=== PATIENT | male | born 1995 | race Caucasian/White ===

== ENCOUNTER 2016-04-22 12:58 | Inpatient (IN) | payer BC, OTHER ==
[~2016-04-22] VITALS: Ht 185.4 cm; Wt 90.0 kg
[2016-04-22] VITALS (9 sets, daily range): BP systolic 134–148; BP diastolic 62–95; PULSE 72–95; TEMP 36.5–37; O2SAT 95–97; Ht 185.4 cm; Wt 90.0 kg
[~2016-04-22 12:58] MED LIST: HYOS0.1255 PO
[2016-04-22] MEDS ORDERED: ALBUT/IPRATROP 3MG/0.5MG NEB 3 ML VIAL ONE (13:09)
[2016-04-22] MEDS ORDERED: EpINEphrine INJ 1MG/ML AMP 1 MG/ML AMP ONE (13:10)
[2016-04-22] MEDS ORDERED: METHYLPREDNISOLONE 125 MG VIAL ONE (13:10)
[2016-04-22] MEDS ORDERED: FAMOTIDINE 20MG/102 ML D5W IV STA (13:13)
[2016-04-22] MEDS ORDERED: DiphenhydrAMINE HCL 50 MG/ML VIAL IV STA (13:13)
[2016-04-22] MEDS ORDERED: DiphenhydrAMINE HCL 50 MG/ML VIAL ONE (13:14)
--- NOTE | 2016-04-22 13:23 | EMERGENCY ROOM VISIT NOTE ---
History Report prepared by Nasim: Todd Robles Under the Supervision of: Dr. Arthur Jewell M.D. First contact with patient: 13:10 Chief Complaint: ALLERGIC REACTION Stated Complaint: Allergic Reaction/Amoxicillin Nursing Triage Summary: Pt started on Amoxillin BID on Sunday by [facility]. Stated "they said my uvula was swollen." Possible strep throat. Pt stated he has had difficulty breathing since yesterday. Pt noticed redness and swelling to face and hour ago. Went to [facility] and given .6 epi X2, 50mg benadryl and neb tx. On arrival to ED pt 91% room air. Unknown of what he may have been exposed to this am. 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 He notes he was started on Amoxicillin on 5 days ago by [facility] for a swollen uvula. He last took the Amoxicillin about 2 hours ago. He states he has taken Amoxicillin before. He was on his way back to [facility] today when his allergic symptoms began today. He notes coughing, having shortness of breath, and had "blood rushing to his head". He was given 2 doses of epinephrine IM and 50 mg of Benadryl IV by [facility]. He does not have medication at home for allergic reactions. The patient denies having any known allergies. He reports eating cinnamon raisin toast, applesauce, and water this morning. 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 A total of 10 systems reviewed and were otherwise negative. Past Medical & Surgical Medical Problems: (1) History of abdominal pain (2) Marijuana smoker (3) URI, acute Social History Problems: (1) Social alcohol use Family History No pertinent family history stated. Social History Smoking Status: Never Smoker Occupation Status: [employer] student Current/Historical Medications Scheduled Amoxicillin (Amoxil), 1 CAP PO BID Ibuprofen Tab (Advil), 400-600 MG PO Q6H Nystatin (Nystatin Suspension), 1 DOSE PO BID Probiotic Product (Probiotic), 1 CAP PO DAILY Miscellaneous Medications Clotrimazole (Mycelex), 10 MG MT Allergies Coded Allergies: No Known Allergies (Unverified , 04/22/16) Physical Exam Vital Signs Date Time Temp Pulse Resp B/P Pulse Ox O2 Delivery O2 Flow Rate FiO2 04/22/16 15:03 84 14 97 04/22/16 14:58 89 23 152/93 98 04/22/16 14:43 97 22 132/78 97 04/22/16 14:28 95 15 138/78 97 04/22/16 14:13 93 19 134/78 99 04/22/16 14:01 74 156/101 99 04/22/16 13:58 100 17 135/83 98 04/22/16 13:43 110 23 143/106 92 04/22/16 13:38 149/89 04/22/16 13:29 105 04/22/16 13:28 106 17 96 04/22/16 13:27 97 Nasal Cannula 2.0 04/22/16 13:13 96 17 97 04/22/16 13:03 91 Room Air 04/22/16 13:03 36.9 114 20 152/87 97 Room Air 04/22/16 13:01 152/87 Physical Exam GENERAL: Patient is in no acute distress. HEENT: No acute trauma, normocephalic atraumatic, mucous membranes moist, no nasal congestion, no scleral icterus. Slight edema of the lips. Mild uvular edema. No pharyngitis. NECK: No stridor, no adenopathy, no meningismus, trachea is midline. Hoarse sounding voice. LUNGS: Clear to auscultation bilaterally, no wheeze, no rhonchi, breath sounds equal. HEART: Mildly tachycardic. No murmurs. Rhythm is regular. ABDOMEN: Soft, nontender, bowel sounds positive, no hernias, no peritonitis. EXTREMITIES: No cyanosis or edema, full range of motion of all the joints without pain or difficulty, no signs for acute trauma. NEUROLOGIC: Oriented x 3, no acute motor or sensory deficits, no focal weakness. SKIN: Diffuse erythema with urticarial lesion which tyree. No petechiae. No cellulitis. Medical Decision & Procedures Laboratory Results 04/22/16 13:30 Red Blood Count 5.69, Mean Corpuscular Volume 88.9, Mean Corpuscular Hemoglobin 31.3, Mean Corpuscular Hemoglobin Concent 35.2, Mean Platelet Volume 10.3, Neutrophils (%) (Auto) 64.0, Lymphocytes (%) (Auto) 24.8, Monocytes (%) (Auto) 9.3, Eosinophils (%) (Auto) 1.5, Basophils (%) (Auto) 0.2, Neutrophils # (Auto) 3.88, Lymphocytes # (Auto) 1.50, Monocytes # (Auto) 0.56, Eosinophils # (Auto) 0.09, Basophils # (Auto) 0.01 04/22/16 13:30 Test 04/22/16 13:30 White Blood Count 6.05 K/uL (4.8-10.8) Red Blood Count 5.69 M/uL (4.7-6.1) Hemoglobin 17.8 g/dL (14.0-18.0) Hematocrit 50.6 % (42-52) Mean Corpuscular Volume 88.9 fL (80-100) Mean Corpuscular Hemoglobin 31.3 pg (25-34) Mean Corpuscular Hemoglobin Concent 35.2 g/dl (32-36) Platelet Count 206 K/uL (130-400) Mean Platelet Volume 10.3 fL (7.4-10.4) Neutrophils (%) (Auto) 64.0 % Lymphocytes (%) (Auto) 24.8 % Monocytes (%) (Auto) 9.3 % Eosinophils (%) (Auto) 1.5 % Basophils (%) (Auto) 0.2 % Neutrophils # (Auto) 3.88 K/uL (1.4-6.5) Lymphocytes # (Auto) 1.50 K/uL (1.2-3.4) Monocytes # (Auto) 0.56 K/uL (0.11-0.59) Eosinophils # (Auto) 0.09 K/uL (0-0.5) Basophils # (Auto) 0.01 K/uL (0-0.2) RDW Standard Deviation 40.8 fL (36.4-46.3) RDW Coefficient of Variation 12.5 % (11.5-14.5) Immature Granulocyte % (Auto) 0.2 % Immature Granulocyte # (Auto) 0.01 K/uL (0.00-0.02) Anion Gap 11.0 mmol/L (3-11) Est Creatinine Clear Calc Drug Dose 110.0 ml/min Estimated GFR () 99.6 Estimated GFR (Non- 85.9 BUN/Creatinine Ratio 8.7 (10-20) Calcium Level 8.7 mg/dl (8.5-10.1) Magnesium Level 2.0 mg/dl (1.8-2.4) Total Bilirubin 1.0 mg/dl (0.2-1) Aspartate Amino Transf (AST/SGOT) 17 U/L (15-37) Alanine Aminotransferase (ALT/SGPT) 20 U/L (12-78) Alkaline Phosphatase 53 U/L (45-117) Total Protein 8.0 gm/dl (6.4-8.2) Albumin 4.2 gm/dl (3.4-5.0) Globulin 3.8 gm/dl (2.5-4.0) Albumin/Globulin Ratio 1.1 (0.9-2) Monoscreen NEG (NEG) Laboratory results reviewed by me. Medications Administered Medications (Trade) Dose Ordered Sig/Remy Route Start Time Stop Time Status Last Admin Dose Admin Albuterol/ Ipratropium (Duoneb) 3 ml STK-MED ONCE .ROUTE 04/22/16 13:09 04/22/16 13:11 DC 04/22/16 13:09 3 ML Epinephrine HCl (EpINEphrine INJ 1MG/ML AMP/VIAL) 1 mg STK-MED ONCE .ROUTE 04/22/16 13:10 04/22/16 13:11 DC 04/22/16 13:10 0.3 MG Methylprednisolone Sodium Succinate (Solu-Medrol IV) 125 mg STK-MED ONCE .ROUTE 04/22/16 13:10 04/22/16 13:11 DC 04/22/16 13:10 125 MG Diphenhydramine HCl (Benadryl Inj) 50 mg STK-MED ONCE .ROUTE 04/22/16 13:14 04/22/16 13:15 DC 04/22/16 13:14 50 MG Famotidine 20 mg 20 mg ONE STAT IV 04/22/16 13:13 04/22/16 13:17 DC 04/22/16 13:13 20 MG Epinephrine HCl/ Dextrose (Adrenalin Inj/ D5 250ml) 254 ml @ 0 mls/hr Q0M PRN IV 2/4/17 13:30 04/22/16 16:12 DC 04/22/16 13:38 6.75 MLS/HR ECG Indication: other (allergic reaction) Rate (beats per minute): 102 Rhythm: sinus tachycardia Findings: no acute ischemic change, no ectopy ED Course 1308: The patient was evaluated in room C5. A complete history and physical exam was performed. 1313: Ordered Benadryl Inj 50 mg IV, and Famotidine 20 mg IV. 1330: Ordered Epinephrine HCl 4 mg/Dextrose 254 ml @ 0 mls/hr Protocol IV. 1435: I reassessed the patient and he is feeling better with no rash. 1455: Discussed the patient's case with Dr. Mclean. The patient will be evaluated for further management. 1500: Discussed the patient's case with Dr. Modi. The patient will be evaluated for further management. 1502: Upon reexamination the patient is hemodynamically stable. I discussed results and treatment plan with the patient. He verbalizes agreement and understanding. The patient will be evaluated for further management. 1505: I spoke with the patient's mother to update her about the case. Medical Decision Differentials include food allergy, medication allergy, environmental allergy, viral illness, and anaphylaxis. There is no leukocytosis or concerning anemia. No significant electrolyte abnormality, kidney failure or hepatitis. Scurry testing is negative. Patient presents with a severe allergic reaction. He had already received 2 doses of IM epinephrine and a dose of IV Benadryl. He had received a DuoNeb. He was still having some difficulty breathing, he was still flushed and there was still lip edema present. The patient was aggressively managed. He received IV Benadryl, IV Pepcid, IV Solu-Medrol. He received a DuoNeb. He was given a dose of IM epinephrine and then was placed on an IV epinephrine drip. With this regimen, the patient is markedly improved. His symptoms have improved , the edema to his uvula is better, his lip edema is better, his flushing and rash are improved. I did speak to the patient and case management. I spoke to his parents by telephone. I do think admission/observation is warranted. I spoke to the on- call teacher adult education as well as to the on-call hospitalist. The cause for the severe reaction is unclear although with his amoxicillin use, this is a likely culprit. Consults Time Called: 1450 Consulting Physician: ARLETTE Mullins Returned Call: 1455 Discussed the patient's case with Dr. Mclean. The patient will be evaluated for further management. Additional Consults: Time Called: 1455 Consulted Physician: ARLETTE Gant Returned Call: 1500 Additional Comments: Discussed the patient's case with Dr. Modi. The patient will be evaluated for further management. Impression Primary Impression: Anaphylaxis Critical Care I have personally spent greater than 30 minutes of critical care time in the direct management of this patient. This includes bedside care, interpretation of diagnostic studies and testing, discussion with consultants, the patient, and family members, and other required patient management activities. This 30 minutes is in excess of all separately billable procedures. Scribe Attestation The scribe's documentation has been prepared under my direction and personally reviewed by me in its entirety. I confirm that the note above accurately reflects all work, treatment, procedures, and medical decision making performed by me. Departure Information Dispostion Being Evaluated By Hospitalist [facility] (PCP) Patient Instructions My [facility]
[2016-04-22] MEDS: EPINEPHRINE HCL 4 MG in DEXTROSE 5% 250ML IV PRN ×2 (13:36→13:38)
[2016-04-22 13:44] LABS: BASO % 0.2 %; BASO ABS # 0.01 K/uL (0-0.2); COMPLETE YES; EOS % 1.5 %; HEMATOCRIT 50.6 % (42-52); IG% 0.2 %; LYMPH % 24.8 %; MEAN CELL VOLUME 88.9 fL (80-100); MEAN CORPUSCULAR HEMOGLOBIN 31.3 pg (25-34); MEAN CORPUSCULAR HGB CONC 35.2 g/dl (32-36); MEAN PLATELET VOLUME 10.3 fL (7.4-10.4); MONO % 9.3 %; PLATELET COUNT 206 K/uL (130-400); RED BLOOD COUNT 5.69 M/uL (4.7-6.1); WHITE BLOOD COUNT 6.05 K/uL (4.8-10.8)
[2016-04-22 14:05] LABS: BUN/CREATININE RATIO 8.7 (10-20); CALCIUM 8.7 mg/dl (8.5-10.1); CREATININE 1.2 mg/dl (0.60-1.40); POTASSIUM 3.6 mmol/L (3.5-5.1)
[2016-04-22 14:08] LABS: ALB/GLOB RATIO 1.1 (0.9-2)
[2016-04-22] MEDS ORDERED: MISCCAP80 PO (14:34)
[2016-04-22] MEDS ORDERED: NYSS/ PO (14:34)
[2016-04-22] MEDS ORDERED: IBUP-103 PO (14:34)
[2016-04-22] MEDS ORDERED: AMOX250C3 PO (14:34)
[2016-04-22] MEDS ORDERED: CLOT10TR2 MT (14:34)
[2016-04-22] MEDS ORDERED: DiphenhydrAMINE HCL 50 MG/ML VIAL IV PRN (15:15)
[2016-04-22] MEDS ORDERED: ZOLPIDEM TARTRATE 5 MG TAB PO PRN (15:15)
[2016-04-22] MEDS ORDERED: ACETAMINOPHEN 325 MG TAB PO PRN (15:15)
[2016-04-22] MEDS ORDERED: PROMETHAZINE HCL INJ 12.5 MG in SODIUM CHLORIDE 0.9% 50ML 50 ML IV PRN (15:15)
[2016-04-22] MEDS ORDERED: ONDANSETRON INJ 2 MG/ML 2 ML VIAL IV PRN (15:15)
[2016-04-22] MEDS ORDERED: LORAZEPAM 2 MG/ML 1 ML VIAL IV PRN ×2 (15:15)
[2016-04-22] MEDS ORDERED: LORAZEPAM INJ 0.5 MG in SYRINGE 0.75 ML IV PRN (15:30)
[2016-04-22] MEDS ORDERED: LORAZEPAM INJ 1 MG in SYRINGE 0.5 ML IV PRN (15:30)
[2016-04-22] MEDS ORDERED: EpINEphrine HCL INJ 4 MG in DEXTROSE 5% 250ML 250 ML IV PRN (16:15)
--- NOTE | 2016-04-22 16:16 | Procedure Note ---
Procedure Note Procedure Date Apr 22, 2016. Central Line Procedure time out: side/site verified, patient ID confirmed, sterile procedure used Consent obtained: written Time of procedure: 15:30 Performed by: attending Indications: central drug admin. Anesthesia: lidocaine 1% without epi (2 ml) Central line lumen: single Central line location: internal jugular (R) Additional details: ultrasound guidance, Selinger technique used, other (line secured with commercial securement device) CXR: appropriate position, no pneumothorax Patient tolerated procedure: well Post-procedure vital signs: reviewed and stable
--- NOTE | 2016-04-22 16:26 | DIAGNOSTIC IMAGING REPORT ---
CHEST ONE VIEW PORTABLE CLINICAL HISTORY: c 5 cough. Allergy. COMPARISON STUDY: 12/13/2015 FINDINGS: The bones soft tissues and hemidiaphragms are normal. The cardiomediastinal silhouette is normal. The lungs are clear. The pulmonary vasculature is normal. IMPRESSION: Negative chest. Electronically signed by: Saman Edwards M.D. 04/22/2016 4:24 PM Dictated Date/Time: 04/22/2016 4:24 PM
--- NOTE | 2016-04-22 16:31 | Critical Care Consultation ---
Critical Care Consultation Date of Consultation: Apr 22, 2016. Attending Physician: Vaibhav Mclean Reason for Consultation: Anaphylaxis History of Present Illness Patient is a 21-year-old male with a significant past medical history for occasional marijuana use who presents after seeing [facility] possibly 5 days ago for swelling of his uvula. Patient was started on amoxicillin at that time. Patient reports he's had amoxicillin several times in the past without any ill effect. Today the patient started developing a rash and hives he returned to [facility] and was found to have rapidly progressing anaphylaxis. He was sent to [facility] for further evaluation, he was given IV Solu-Medrol, Benadryl, Pepcid, and given intramuscular epinephrine. He continued to have symptoms so the patient was started on an epinephrine fusion through the left antecubital fossa. Due to persistent symptoms the patient is requiring continued vasoactive medications and needs to be admitted to the intensive care unit. During my evaluation the patient was no longer short of breath complaining of some mild nasal congestion, but was generally feeling improved. He denied shortness of breath or chest pain. He was consented for a right internal jugular central venous catheter. He denies any family history of anaphylaxis, reports that he was once underwent allergy testing by an electric organ inspector and repairer and he has seasonal allergies to dust and mold. He reportedly was seen previously several months ago for something Similar When His Face Had Some Swelling Which Resolved after Antihistamine Administration. 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 Smoking Status: Never Smoker Occupation Status: [employer] Allergies Coded Allergies: No Known Allergies (Unverified , 04/22/16) Home Medications Scheduled Amoxicillin (Amoxil), 1 CAP PO BID Ibuprofen Tab (Advil), 400-600 MG PO Q6H Nystatin (Nystatin Suspension), 1 DOSE PO BID Probiotic Product (Probiotic), 1 CAP PO DAILY Miscellaneous Medications Clotrimazole (Mycelex), 10 MG MT Current Inpatient Medications Current Inpatient Medications Medications (Trade) Dose Ordered Sig/Remy Route Start Time Stop Time Status Last Admin Dose Admin Acetaminophen (Tylenol Tab) 650 mg Q4H PRN PO 04/22/16 15:15 05/22/16 15:14 Diphenhydramine HCl 50 mg 50 mg Q4H PRN IV 04/22/16 15:15 05/22/16 15:14 Promethazine HCl/ Sodium Chloride (Phenergan Inj/ Nss 50ml) 50.5 ml @ 202 mls/hr Q4H PRN IV 04/22/16 15:15 05/22/16 15:14 Zolpidem Tartrate (Ambien Tab) 5 mg HSZ PRN PO 04/22/16 15:15 05/22/16 15:14 Ondansetron HCl 4 mg 4 mg Q6H PRN IV 04/22/16 15:15 05/22/16 15:14 Methylprednisolone Sodium Succinate 60 mg/Syringe 0.96 ml @ 1.5 mls/min Q6H IV 04/22/16 15:15 05/22/16 15:14 UNV Epinephrine HCl 4 mg/Dextrose 254 ml @ 0 mls/hr Q0M PRN IV 04/22/16 16:15 05/22/16 16:14 Famotidine 20 mg/ Dextrose 102 ml @ 200 mls/hr Q12H IV 04/22/16 15:30 05/22/16 15:29 UNV Potassium Chloride/Sodium Chloride (Nss + 20meq KCl 1000ml) 1,000 ml @ 200 mls/hr Q5H IV 04/22/16 15:24 05/22/16 15:23 UNV Review of Systems A 10 point review of systems is been obtained and is otherwise negative Constitutional: No chills, No fever, No sweats Eyes: No eye pain, No worsening of vision ENT: + nasal symptoms, + trouble swallowing Respiratory: + cough, + wheezing Cardiovascular: No PND, No chest pain, No orthopnea Allergic / Immunologic: + environmental allergies, + seasonal allergies, No food allergies (food intolerance, lactose intolerance), No frequent infections, No hives, No pet sensitivities, No poor healing, No problem reported, No prolonged convalescence Physical Exam Date Time Temp Pulse Resp B/P Pulse Ox O2 Delivery O2 Flow Rate FiO2 04/22/16 16:03 82 17 96 04/22/16 15:58 140/66 04/22/16 15:48 106 19 97 04/22/16 15:43 137/71 04/22/16 15:33 93 17 98 04/22/16 15:28 151/77 04/22/16 15:18 91 22 98 04/22/16 15:13 143/75 04/22/16 15:03 84 14 97 04/22/16 14:58 89 23 152/93 98 04/22/16 14:43 97 22 132/78 97 04/22/16 14:28 95 15 138/78 97 04/22/16 14:13 93 19 134/78 99 04/22/16 14:01 74 156/101 99 04/22/16 13:58 100 17 135/83 98 04/22/16 13:43 110 23 143/106 92 04/22/16 13:38 149/89 04/22/16 13:29 105 04/22/16 13:28 106 17 96 04/22/16 13:27 97 Nasal Cannula 2.0 04/22/16 13:13 96 17 97 04/22/16 13:03 91 Room Air 04/22/16 13:03 36.9 114 20 152/87 97 Room Air 04/22/16 13:01 152/87 Skin: Fine macular red rash consistent with anaphylaxis General Appearance: well-appearing, WD/WN, no apparent distress Head: normocephalic, atraumatic Eyes: PERRLA, no discharge, EOMI ENT: normal nasal exam, normal mouth exam, normal dental exam, other (mild uvular edema) Neck: normal range of motion, no tenderness, trachea midline Respiratory: breath sounds normal, clear to auscultation, clear to percussion, no respiratory distress, no tenderness Cardiovasular: regular rate/rhythm, normal S1S2, no M/G/R, no murmur, no gallop , no rub, no JVD Abdomen: non tender, normal bowel sounds, no rebound, no masses, no guarding, no organomegaly Back: normal inspection, no midline tenderness Upper Extremities: no edema Lower Extremities: no edema Pulses: dorsalis pedis (R) (2+), dorsalis pedis (L) (2+), posterior tibial (R) , posterior tibial (L) Neuro: alert, oriented x 3, normal motor exam Psychiatric: normal affect, no suicidal ideation Laboratory Results Last 24 Hours Test 04/22/16 13:30 04/22/16 15:40 White Blood Count 6.05 K/uL Red Blood Count 5.69 M/uL Hemoglobin 17.8 g/dL Hematocrit 50.6 % Mean Corpuscular Volume 88.9 fL Mean Corpuscular Hemoglobin 31.3 pg Mean Corpuscular Hemoglobin Concent 35.2 g/dl Platelet Count 206 K/uL Mean Platelet Volume 10.3 fL Neutrophils (%) (Auto) 64.0 % Lymphocytes (%) (Auto) 24.8 % Monocytes (%) (Auto) 9.3 % Eosinophils (%) (Auto) 1.5 % Basophils (%) (Auto) 0.2 % Neutrophils # (Auto) 3.88 K/uL Lymphocytes # (Auto) 1.50 K/uL Monocytes # (Auto) 0.56 K/uL Eosinophils # (Auto) 0.09 K/uL Basophils # (Auto) 0.01 K/uL RDW Standard Deviation 40.8 fL RDW Coefficient of Variation 12.5 % Immature Granulocyte % (Auto) 0.2 % Immature Granulocyte # (Auto) 0.01 K/uL Sodium Level 138 mmol/L Potassium Level 3.6 mmol/L Chloride Level 103 mmol/L Carbon Dioxide Level 24 mmol/L Anion Gap 11.0 mmol/L Blood Urea Nitrogen 10 mg/dl Creatinine 1.20 mg/dl Est Creatinine Clear Calc Drug Dose 110.0 ml/min Estimated GFR () 99.6 Estimated GFR (Non- 85.9 BUN/Creatinine Ratio 8.7 Random Glucose 114 mg/dl Calcium Level 8.7 mg/dl Magnesium Level 2.0 mg/dl Total Bilirubin 1.0 mg/dl Aspartate Amino Transf (AST/SGOT) 17 U/L Alanine Aminotransferase (ALT/SGPT) 20 U/L Alkaline Phosphatase 53 U/L Total Protein 8.0 gm/dl Albumin 4.2 gm/dl Globulin 3.8 gm/dl Albumin/Globulin Ratio 1.1 Monoscreen NEG Assessment & Plan (1) Anaphylaxis - Sent tryptase level - C3 level, C1 C1 inhibitor, C4 - Amoxicillin allergen - zone 3 allergens - Advised patient he will need epinephrine pen at discharge - Wean epinephrine as tolerated, patient can have liquid diet while on the epinephrine, can progress diet once off epinephrine - Continue to use steroids, Pepcid, Benadryl (2) URI, acute - Symptomatic control at this time (3) Social alcohol use (4) Marijuana smoker Advocate to stop smoking marijuana I have personally spent 35 minutes of critical care time in the direct management of this patient. This is a life/limb threatening event. This includes time spent evaluating patient, direct bedside care, chart review, placing orders, interpretation of diagnostic studies, discussion with consultants, patient, and family members, as well as other required patient management activities. This time is exclusive of all separately billable procedures, and teaching time and separate from and in addition to any other critical care service time.
[2016-04-22] MEDS: NSS + 20MEQ KCL 1000ML 1,000 ML IV SCH ×2 (17:44→23:04)
[2016-04-22] MEDS: METHYLPREDNISOLONE IV 60 MG in SYRINGE 0 ML IV SCH (17:48)
--- NOTE | 2016-04-22 19:15 | Family Medicine Progress Note ---
Progress Note Date of Service Apr 22, 2016. Subjective Pt seen and examined at bedside in ICU. Pt states that he has considerable fatigue at this point, but feels that his swelling and rash have marginally improved. He states that these symptoms onset Sunday AM (6 days ago) - fatigue, myalgias, fever/chills, pharyngitis, congestion without rhinorrhea. He spent the entire previous day drinking alcohol of unknown quantity and blacked out around midnight. He saw S on Sunday and they treated his pharyngitis w/ amoxicillin without culture or rapid testing (per pt). The symptoms progressively worsened over the course of the week, culminating in a drasting worsening of facial and ear swelling while walking in the cold to [facility] to be re- evaluated. Epi was administered and he was transported here. He states for the last month he has been experiencing angular chelitis without response to nystatin s/s, some intraoral irritation for a similar period of time. He states he has had a previous episode of facial swelling treated in the ED w/ benadryl and steroids to resolution which was not nearly so severe. MHx: Lincoln syndrome, IBS, GERD, alcohol use binge drinking FHx: Lung cancer (smoker), cardiac disease in father w/ 1 stent placed in his 40s SocHx: > 10 drinks 2-5 days per week, occasional marijuana use, nonsmoker Objective Physical Exam General Appearance: + mild distress, + pertinent finding (diaporetic) Eyes: normal inspection, PERRL ENT: TMs normal, + pharyngeal erythema, + pertinent finding (uvular swelling) Neck: supple, no adenopathy, + pertinent finding (right IJ in place) Respiratory/Chest: chest non-tender, lungs clear, normal breath sounds, no respiratory distress Cardiovascular: regular rate, rhythm, no edema, no murmur Abdomen: normal bowel sounds, non tender, soft, no organomegaly Assessment and Plan 21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 Denise during the history and exam. I discussed the case with the resident and agree with the findings and plan as documented in the note. Any exceptions or clarifications are listed here. For attending impression and plan, please see note from today.
--- NOTE | 2016-04-22 19:38 | History and Physical ---
History & Physical Date & Time of Service: Apr 22, 2016 at 19:19 Chief Complaint: Anaphylaxis [facility] of Present [facility]ness Source: patient The patient is a 21-year-old male who presents to the emergency department with a severe allergic reaction that began about one hour prior to arrival. Patient reports that he was seen at [facility] 5 days ago for a swollen uvula, and was started on amoxicillin that time, of which he has 3 doses left. He has taken amoxicillin several times in the past without adverse effect. He reports he has been gradually feeling worse in general throughout the week. When he presented to [facility] today, he was noted to be coughing, having shortness of breath, the feeling of warmth and flushing to his face and head, and was noted to have reddened skin by staff there. He was given 2 doses of epinephrine IM and Benadryl 50 mg IV, by [facility], and then referred to the emergency department. In the emergency department, he was placed on epinephrine infusion, given Solu-Medrol 25 mg IV, Benadryl 50 mg IV 2, famotidine 20 mg IV, and a DuoNeb treatment. He was then referred for evaluation for admission. Social History Smoking Status: Never Smoker Smokeless Tobacco Use: No Alcohol Use: occasionally Drug Use: marijuana Marital Status: single Occupational Status: [employer] student Multi-Drug Resistant Organisms History of MDRO: No Allergies Coded Allergies: No Known Allergies (Unverified , 04/22/16) Home Medications Scheduled Amoxicillin (Amoxil), 1 CAP PO BID Ibuprofen Tab (Advil), 400-600 MG PO Q6H Nystatin (Nystatin Suspension), 1 DOSE PO BID Probiotic Product (Probiotic), 1 CAP PO DAILY Miscellaneous Medications Clotrimazole (Mycelex), 10 MG MT Review of Systems The patient denies palpitations, cough, lower extremity swelling, vision change , hearing change, chills, sweats, weight change, fatigue, nausea, vomiting, abdominal pain, pelvic pain, blood in urine or stool, dysuria, urinary frequency or urgency, dizziness, headache, memory loss, abnormal bruising or bleeding, imbalance, focal weakness, numbness or tingling in arms or legs, arthralgias or myalgias, back or neck pain. The review of systems is otherwise negative other than for that already noted above, and at least 10 systems have been reviewed. Physical Exam Vital Signs Date Time Temp Pulse Resp B/P Pulse Ox O2 Delivery O2 Flow Rate FiO2 04/22/16 18:00 94 16 142/74 96 Room Air 04/22/16 16:51 37.0 88 16 139/86 97 Room Air 04/22/16 16:03 82 17 96 04/22/16 15:58 140/66 04/22/16 15:48 106 19 97 04/22/16 15:43 137/71 04/22/16 15:33 93 17 98 04/22/16 15:28 151/77 04/22/16 15:18 91 22 98 04/22/16 15:13 143/75 04/22/16 15:03 84 14 97 04/22/16 14:58 89 23 152/93 98 04/22/16 14:43 97 22 132/78 97 04/22/16 14:28 95 15 138/78 97 04/22/16 14:13 93 19 134/78 99 04/22/16 14:01 74 156/101 99 04/22/16 13:58 100 17 135/83 98 04/22/16 13:43 110 23 143/106 92 04/22/16 13:38 149/89 04/22/16 13:29 105 04/22/16 13:28 106 17 96 04/22/16 13:27 97 Nasal Cannula 2.0 04/22/16 13:13 96 17 97 04/22/16 13:03 91 Room Air 04/22/16 13:03 36.9 114 20 152/87 97 Room Air 04/22/16 13:01 152/87 The patient is awake, well-developed and adequately nourished, alert and oriented 3, normocephalic and atraumatic, lying in bed and in no acute distress. HEENT--PERRL, EOMI, mucous membranes and oropharynx dry. Uvula mildly enlarged. Nasal congestion. Neck--supple, no JVD or bruits, thyroid normal, trachea midline, no adenopathy. Heart--normal S1 and S2, no extra beats, no murmurs, rubs or gallops. Lungs--clear bilaterally with good air movement, no respiratory distress, no accessory muscle use. Abdomen--normal bowel sounds and soft, nontender and nondistended, no hernias or masses, no organomegaly. Extremities--no cyanosis, clubbing or edema. There are good distal pulses b/l. Dermatologic--papular macular rash noted primarily in upper extremities head and neck. Neurologic--cranial nerves II through XII grossly intact, motor and sensory examination normal. Rheumatologic--normal range of motion, nontender, muscles and joints. Psychiatric--normal affect. Diagnostics Laboratory Results Results Past 24 Hours Test 04/22/16 13:30 04/22/16 17:27 04/22/16 19:11 Range/Units White Blood Count 6.05 4.8-10.8 K/uL Red Blood Count 5.69 4.7-6.1 M/uL Hemoglobin 17.8 14.0-18.0 g/dL Hematocrit 50.6 42-52 % Mean Corpuscular Volume 88.9 80-100 fL Mean Corpuscular Hemoglobin 31.3 25-34 pg Mean Corpuscular Hemoglobin Concent 35.2 32-36 g/dl Platelet Count 206 130-400 K/uL Mean Platelet Volume 10.3 7.4-10.4 fL Neutrophils (%) (Auto) 64.0 % Lymphocytes (%) (Auto) 24.8 % Monocytes (%) (Auto) 9.3 % Eosinophils (%) (Auto) 1.5 % Basophils (%) (Auto) 0.2 % Neutrophils # (Auto) 3.88 1.4-6.5 K/uL Lymphocytes # (Auto) 1.50 1.2-3.4 K/uL Monocytes # (Auto) 0.56 0.11-0.59 K/uL Eosinophils # (Auto) 0.09 0-0.5 K/uL Basophils # (Auto) 0.01 0-0.2 K/uL RDW Standard Deviation 40.8 36.4-46.3 fL RDW Coefficient of Variation 12.5 11.5-14.5 % Immature Granulocyte % (Auto) 0.2 % Immature Granulocyte # (Auto) 0.01 0.00-0.02 K/uL Sodium Level 138 136-145 mmol/L Potassium Level 3.6 3.5-5.1 mmol/L Chloride Level 103 98-107 mmol/L Carbon Dioxide Level 24 21-32 mmol/L Anion Gap 11.0 3-11 mmol/L Blood Urea Nitrogen 10 7-18 mg/dl Creatinine 1.20 0.60-1.40 mg/dl Est Creatinine Clear Calc Drug Dose 110.0 ml/min Estimated GFR () 99.6 Estimated GFR (Non- 85.9 BUN/Creatinine Ratio 8.7 10-20 Random Glucose 114 70-99 mg/dl Calcium Level 8.7 8.5-10.1 mg/dl Magnesium Level 2.0 1.8-2.4 mg/dl Total Bilirubin 1.0 0.2-1 mg/dl Aspartate Amino Transf (AST/SGOT) 17 15-37 U/L Alanine Aminotransferase (ALT/SGPT) 20 12-78 U/L Alkaline Phosphatase 53 45-117 U/L Total Protein 8.0 6.4-8.2 gm/dl Albumin 4.2 3.4-5.0 gm/dl Globulin 3.8 2.5-4.0 gm/dl Albumin/Globulin Ratio 1.1 0.9-2 Monoscreen NEG NEG Diagnostic Radiology Patient Name: SHADY WASHBURN Unit Number: [id number] Dictated: 04/22/161623 Transcribed: 04/22/16 162 MS Printed Date/Time: [~ rep prt dt]/[~ rep prt tm] [~ rep ct labl] - [~ rep ct ivnm] [facility] [place] [address] Dictated: 04/22/161623 Transcribed: 04/22/16 1624 MS Printed Date/Time: [~ rep prt dt]/[~ rep prt tm] [~ rep ct labl] - [~ rep ct ivnm] CHEST ONE VIEW PORTABLE CLINICAL HISTORY: c 5 cough. Allergy. COMPARISON STUDY: 12/13/2015 FINDINGS: The bones soft tissues and hemidiaphragms are normal. The cardiomediastinal silhouette is normal. The lungs are clear. The pulmonary vasculature is normal. IMPRESSION: Negative chest. Electronically signed by: Saman Edwards M.D. 04/22/2016 4:24 PM Dictated Date/Time: 04/22/2016 4:24 PM The status of this report is Signed. Draft = Not yet reviewed or approved by Radiologist. Signed = Reviewed and approved by Radiologist. <AttendingPhy>Vaibhav Mclean M.D.</AttendingPhy> <FamilyPhy>[facility]</FamilyPhy> <PrimaryPhy>[facility]</PrimaryPhy> <UnitNumber>[id number]</UnitNumber> <VisitNumber>[id number]</VisitNumber> < PatientName>SHADY WASHBURN</PatientName> <DateOfBirth>1995</DateOfBirth > <Location>C.MSICU</Location> <ServiceDate>04/22/16</ServiceDate> <MNE>ESINDI</ MNE> <OrderingPhy>Arthur Jewell M.D.</OrderingPhy> <OrderingPhyMNE>f rep ord dr avila</OrderingPhyMNE> <DictatingPhyMNE>f rep dict dr avila</DictatingPhyMNE> < CCListMNE>f rep ct [place]</CCListMNE> <AdmittingPhyMNE>f pt admit dr avila</ AdmittingPhyMNE> <AttendingPhyMNE>f pt attend dr avila</AttendingPhyMNE> <ConsultingPhyMNE>f pt consult dr avila</ConsultingPhyMNE> <FamilyPhyMNE>f pt fam dr avila</FamilyPhyMNE> <OtherPhyMNE>f pt other dr avila</OtherPhyMNE> < PrimaryPhyMNE>f pt prim care dr avila</PrimaryPhyMNE> <ReferringPhyMNE>f pt referring dr avila</ReferringPhyMNE> EKG EKG shows sinus tachycardia at 102 bpm, with no acute ST-T changes. Impression Assessment and Plan Anaphylactic reaction requiring continuous epinephrine infusion and admission to the intensive care unit--the patient be admitted to the ICU. He'll be continued on the epinephrine infusion started in the emergency department, Solu- Medrol 60 mg IV every 6 hours, famotidine 20 mg IV twice a day, Benadryl 50 mg IV every 4 hours when necessary, normal saline with potassium chloride 20 mEq at 200 ML's per hour. He has been ordered RAST testing for zone 3 allergens, basic food profile, and amoxicillin. He's also been ordered C1 esterase inhibitor levels, C3, C4 and CH 50 levels. We'll also follow routine CBC with differential, basic metabolic panel and magnesium levels. GERD--famotidine as noted above. Irritable bowel syndrome/lactose intolerance--diet as tolerated. We'll increase probiotics to 4 tabs by mouth 4 times a day. Level of Care Critical Care Advanced Directives Existing Advance Directive: No Existing Living Will: No Existing Power of Relocation Specialist: No Resuscitation Status FULL RESUSCITATION VTE Prophylaxis VTE Risk Assessment Done? Y/N: Yes Risk Level: Low Given or contraindicated: SCD's Social Service Consult None Apply
[2016-04-22] MEDS ORDERED: ALBUT/IPRATROP 3MG/0.5MG NEB 3 ML VIAL INH PRN (20:30)
[2016-04-22] MEDS ORDERED: OSELTAMIVIR PHOSPHATE 75 MG CAP PO ONE (21:00)
[2016-04-23] VITALS (13 sets, daily range): BP systolic 128–151; BP diastolic 61–76; PULSE 64–90; TEMP 36.3–36.8; O2SAT 96–98
[2016-04-23] MEDS: METHYLPREDNISOLONE IV 60 MG in SYRINGE 0 ML IV SCH ×4 (00:23→18:25)
[2016-04-23] MEDS: FAMOTIDINE IV INJ 20 MG in DEXTROSE 5% 100ML 100 ML IV SCH ×2 (01:49→13:41)
[2016-04-23] MEDS: NSS + 20MEQ KCL 1000ML 1,000 ML IV SCH ×2 (03:49→08:48)
[2016-04-23 05:59] LABS: BASO % 0.2 %; BASO ABS # 0.01 K/uL (0-0.2); COMPLETE YES; HEMATOCRIT 43.4 % (42-52); IG% 0.4 %; LYMPH % 9.4 %; LYMPH ABS # 0.53 K/uL (1.2-3.4); MEAN CELL VOLUME 90.8 fL (80-100); MEAN CORPUSCULAR HGB CONC 34.1 g/dl (32-36); MEAN PLATELET VOLUME 10.2 fL (7.4-10.4); MONO % 3.2 %; NEUT % 86.8 %; PLATELET COUNT 253 K/uL (130-400); RED BLOOD COUNT 4.78 M/uL (4.7-6.1); WHITE BLOOD COUNT 5.61 K/uL (4.8-10.8)
[2016-04-23 06:03] LABS: INR 1.1 (0.9-1.1); PARTIAL THROMBOPLASTIN RATIO 1.1; PROTHROMBIN TIME (PATIENT) 12.3 SECONDS (9.0-12.0)
[2016-04-23 06:23] LABS: BUN/CREATININE RATIO 10.3 (10-20); CALCIUM 8.7 mg/dl (8.5-10.1); MAGNESIUM 2.1 mg/dl (1.8-2.4); POTASSIUM 3.9 mmol/L (3.5-5.1)
[2016-04-23 08:32] LABS: IMMUNOGLOBULN M 54.8 mg/dL (40-230)
[2016-04-23] MEDS ORDERED: OSELTAMIVIR PHOSPHATE 75 MG CAP PO SCH (09:00)
[2016-04-23] MEDS ORDERED: NURSING VERBAL MED ORDER ONE (09:15)
--- NOTE | 2016-04-23 10:33 | Critical Care Progress Note ---
Critical Care Progress Note Date of Service Apr 23, 2016. ICU Day ICU Day Number: [address] Modi Subjective Generalized fatigue, no facial swelling, rash resolved Objective Gen: Well-nourished well-hydrated male no acute distress HEENT normocephalic/atraumatic Cardiovascular S1-S2 regular rate and rhythm no murmurs rubs gallops Pulmonary lungs clear to auscultation Abdomen: No hepatosplenomegaly soft nondistended and nontender Skin: No rash Assessment & Plan (1) Anaphylaxis - Follow-up allergy labs - Off epinephrine - DC central venous access - Will need EpiPen prior to discharge (2) URI, acute -Influenza A - Past 48 hours of onset, - no high risk characteristics, - DC Tamiflu (3) Social alcohol use - Reported binge drinking behavior - Encourage modification of lifestyle (4) Marijuana smoker Advocate to stop smoking marijuana Stable for downgraded to regular nursing floor, notified family medicine team Data Medications: Current Inpatient Medications Medications (Trade) Dose Ordered Sig/Remy Route Start Time Stop Time Status Last Admin Dose Admin Acetaminophen (Tylenol Tab) 650 mg Q4H PRN PO 04/22/16 15:15 05/22/16 15:14 Diphenhydramine HCl 50 mg 50 mg Q4H PRN IV 04/22/16 15:15 05/22/16 15:14 04/23/16 01:48 50 MG Promethazine HCl/ Sodium Chloride (Phenergan Inj/ Nss 50ml) 50.5 ml @ 202 mls/hr Q4H PRN IV 04/22/16 15:15 05/22/16 15:14 Zolpidem Tartrate (Ambien Tab) 5 mg HSZ PRN PO 04/22/16 15:15 05/22/16 15:14 Ondansetron HCl 4 mg 4 mg Q6H PRN IV 04/22/16 15:15 05/22/16 15:14 Methylprednisolone Sodium Succinate 60 mg/Syringe 0.96 ml @ 1.5 mls/min Q6H IV 04/22/16 18:00 05/22/16 15:14 04/23/16 05:56 1.5 MLS/MIN Epinephrine HCl 4 mg/Dextrose 254 ml @ 0 mls/hr Q0M PRN IV 04/22/16 16:15 05/22/16 16:14 04/22/16 16:49 6.8 MLS/HR Famotidine/ Dextrose (Pepcid IV Inj/ D5 100ml) 102 ml @ 200 mls/hr Q12H IV 04/23/16 02:00 05/22/16 15:29 04/23/16 01:49 200 MLS/HR Albuterol/ Ipratropium (Duoneb) 3 ml Q4 PRN INH 04/22/16 20:30 05/22/16 20:29 Oseltamivir Phosphate (Tamiflu Cap) 75 mg BID PO 04/23/16 09:00 04/27/16 23:59 04/23/16 08:48 75 MG I & O: 24-Hour Column 04/23/16 08:00 Intake Total 3837 ml Output Total 3700 ml Balance 137 ml Vital Signs: Date Time Temp Pulse Resp B/P Pulse Ox O2 Delivery O2 Flow Rate FiO2 04/23/16 10:00 65 16 136/68 98 Room Air 04/23/16 08:00 36.8 72 16 135/70 96 Room Air 04/23/16 08:00 Room Air 04/23/16 05:58 67 138/69 97 Room Air 04/23/16 05:00 96 Room Air 04/23/16 04:58 90 145/75 96 Room Air 04/23/16 03:58 82 128/61 97 Room Air 04/23/16 02:58 78 133/63 96 Room Air 04/23/16 01:58 85 142/71 96 Room Air 04/23/16 00:58 83 137/64 96 Room Air 04/23/16 00:16 96 Room Air 04/22/16 23:59 36.7 91 134/68 95 Room Air 04/22/16 23:58 78 134/68 95 Room Air 04/22/16 22:58 88 138/78 97 Room Air 04/22/16 21:58 36.5 72 16 134/72 97 Room Air 04/22/16 20:58 95 16 148/95 96 Room Air 04/22/16 20:34 96 Room Air 04/22/16 19:58 36.5 88 16 134/62 97 Room Air 04/22/16 18:00 94 16 142/74 96 Room Air 04/22/16 16:51 37.0 88 16 139/86 97 Room Air 04/22/16 16:03 82 17 96 04/22/16 15:58 140/66 04/22/16 15:48 106 19 97 04/22/16 15:43 137/71 04/22/16 15:33 93 17 98 04/22/16 15:28 151/77 04/22/16 15:18 91 22 98 04/22/16 15:13 143/75 04/22/16 15:03 84 14 97 04/22/16 14:58 89 23 152/93 98 04/22/16 14:43 97 22 132/78 97 04/22/16 14:28 95 15 138/78 97 04/22/16 14:13 93 19 134/78 99 04/22/16 14:01 74 156/101 99 04/22/16 13:58 100 17 135/83 98 04/22/16 13:43 110 23 143/106 92 04/22/16 13:38 149/89 04/22/16 13:29 105 04/22/16 13:28 106 17 96 04/22/16 13:27 97 Nasal Cannula 2.0 04/22/16 13:13 96 17 97 04/22/16 13:03 91 Room Air 04/22/16 13:03 36.9 114 20 152/87 97 Room Air 04/22/16 13:01 152/87 Laboratory Results: Last 24 Hours Test 04/22/16 13:30 04/22/16 17:27 04/22/16 19:09 04/23/16 05:24 White Blood Count 6.05 K/uL 5.61 K/uL Red Blood Count 5.69 M/uL 4.78 M/uL Hemoglobin 17.8 g/dL 14.8 g/dL Hematocrit 50.6 % 43.4 % Mean Corpuscular Volume 88.9 fL 90.8 fL Mean Corpuscular Hemoglobin 31.3 pg 31.0 pg Mean Corpuscular Hemoglobin Concent 35.2 g/dl 34.1 g/dl Platelet Count 206 K/uL 253 K/uL Mean Platelet Volume 10.3 fL 10.2 fL Neutrophils (%) (Auto) 64.0 % 86.8 % Lymphocytes (%) (Auto) 24.8 % 9.4 % Monocytes (%) (Auto) 9.3 % 3.2 % Eosinophils (%) (Auto) 1.5 % 0.0 % Basophils (%) (Auto) 0.2 % 0.2 % Neutrophils # (Auto) 3.88 K/uL 4.87 K/uL Lymphocytes # (Auto) 1.50 K/uL 0.53 K/uL Monocytes # (Auto) 0.56 K/uL 0.18 K/uL Eosinophils # (Auto) 0.09 K/uL 0.00 K/uL Basophils # (Auto) 0.01 K/uL 0.01 K/uL RDW Standard Deviation 40.8 fL 42.2 fL RDW Coefficient of Variation 12.5 % 12.6 % Immature Granulocyte % (Auto) 0.2 % 0.4 % Immature Granulocyte # (Auto) 0.01 K/uL 0.02 K/uL Sodium Level 138 mmol/L 140 mmol/L Potassium Level 3.6 mmol/L 3.9 mmol/L Chloride Level 103 mmol/L 105 mmol/L Carbon Dioxide Level 24 mmol/L 26 mmol/L Anion Gap 11.0 mmol/L 9.0 mmol/L Blood Urea Nitrogen 10 mg/dl 10 mg/dl Creatinine 1.20 mg/dl 1.00 mg/dl Est Creatinine Clear Calc Drug Dose 110.0 ml/min 132.0 ml/min Estimated GFR () 99.6 124.1 Estimated GFR (Non- 85.9 107.1 BUN/Creatinine Ratio 8.7 10.3 Random Glucose 114 mg/dl 151 mg/dl Calcium Level 8.7 mg/dl 8.7 mg/dl Magnesium Level 2.0 mg/dl 2.1 mg/dl Total Bilirubin 1.0 mg/dl 0.6 mg/dl Aspartate Amino Transf (AST/SGOT) 17 U/L 12 U/L Alanine Aminotransferase (ALT/SGPT) 20 U/L 18 U/L Alkaline Phosphatase 53 U/L 40 U/L Total Protein 8.0 gm/dl 7.0 gm/dl Albumin 4.2 gm/dl 3.8 gm/dl Globulin 3.8 gm/dl Albumin/Globulin Ratio 1.1 Immunoglobulin G 1120.0 mg/dL 927.0 mg/dL Monoscreen NEG Influenza Type A Antigen POS for Influ A Influenza Type B Antigen Neg for Influ B Prothrombin Time 12.3 SECONDS Prothromb Time International Ratio 1.1 Activated Partial Thromboplast Time 28.6 SECONDS Partial Thromboplastin Ratio 1.1 Direct Bilirubin 0.2 mg/dl Immunoglobulin A 161.0 mg/dL Immunoglobulin M 54.8 mg/dL
[2016-04-23] MEDS ORDERED: PANTOprazole INJ 40 MG in SYRINGE 0 ML IV SCH (11:00)
--- NOTE | 2016-04-23 14:55 | Family Medicine Progress Note ---
Progress Note Date of Service Apr 23, 2016. Subjective Pt evaluation today including: conversation w/ patient, physical exam, chart review, lab review Patient feeling significantly better today. Feels that swelling in face, mouth, throat has improved. Also has resolution of rash previously along waistband. No dyspnea or difficulty swallowing. Still has some myalgia and back pain. Otherwise tolerating diet and slept well. Constitutional: No chills, No fever Respiratory: No cough, No shortness of breath Cardiovascular: No chest pain, No edema Abdomen: No constipation, No diarrhea, No nausea, No pain, No vomiting Musculoskeletal: + muscle pain Male : No dysuria Neurologic: No weakness Objective Vital Signs Date Time Temp Pulse Resp B/P Pulse Ox O2 Delivery O2 Flow Rate FiO2 04/23/16 15:26 36.7 77 18 150/74 96 Room Air 04/23/16 13:07 36.3 64 18 151/76 97 Room Air 04/23/16 11:25 36.8 65 16 98 04/23/16 10:00 65 16 136/68 98 Room Air 04/23/16 08:00 36.8 72 16 135/70 96 Room Air 04/23/16 08:00 Room Air 04/23/16 05:58 67 138/69 97 Room Air 04/23/16 05:00 96 Room Air 04/23/16 04:58 90 145/75 96 Room Air 04/23/16 03:58 82 128/61 97 Room Air 04/23/16 02:58 78 133/63 96 Room Air 04/23/16 01:58 85 142/71 96 Room Air 04/23/16 00:58 83 137/64 96 Room Air 04/23/16 00:16 96 Room Air 04/22/16 23:59 36.7 91 134/68 95 Room Air 04/22/16 23:58 78 134/68 95 Room Air 04/22/16 22:58 88 138/78 97 Room Air 04/22/16 21:58 36.5 72 16 134/72 97 Room Air 04/22/16 20:58 95 16 148/95 96 Room Air 04/22/16 20:34 96 Room Air 04/22/16 19:58 36.5 88 16 134/62 97 Room Air 04/22/16 18:00 94 16 142/74 96 Room Air Physical Exam General Appearance: WD/WN, no apparent distress Neck: supple, no JVD, + adenopathy present Respiratory/Chest: lungs clear, normal breath sounds, no respiratory distress, no accessory muscle use Cardiovascular: regular rate, rhythm, no edema, no murmur Abdomen: normal bowel sounds, non tender, soft, no organomegaly Extremities: no pedal edema, no calf tenderness Neurologic/Psychiatric: alert, normal mood/affect, oriented x 3 Skin: normal color, warm/dry, no rash Laboratory Results Results Past 24 Hours Test 04/22/16 19:09 04/23/16 05:24 04/23/16 16:14 Range/Units Influenza Type A Antigen POS for Influ A NEG Influenza Type B Antigen Neg for Influ B NEG White Blood Count 5.61 4.8-10.8 K/uL Red Blood Count 4.78 4.7-6.1 M/uL Hemoglobin 14.8 14.0-18.0 g/dL Hematocrit 43.4 42-52 % Mean Corpuscular Volume 90.8 80-100 fL Mean Corpuscular Hemoglobin 31.0 25-34 pg Mean Corpuscular Hemoglobin Concent 34.1 32-36 g/dl Platelet Count 253 130-400 K/uL Mean Platelet Volume 10.2 7.4-10.4 fL Neutrophils (%) (Auto) 86.8 % Lymphocytes (%) (Auto) 9.4 % Monocytes (%) (Auto) 3.2 % Eosinophils (%) (Auto) 0.0 % Basophils (%) (Auto) 0.2 % Neutrophils # (Auto) 4.87 1.4-6.5 K/uL Lymphocytes # (Auto) 0.53 1.2-3.4 K/uL Monocytes # (Auto) 0.18 0.11-0.59 K/uL Eosinophils # (Auto) 0.00 0-0.5 K/uL Basophils # (Auto) 0.01 0-0.2 K/uL RDW Standard Deviation 42.2 36.4-46.3 fL RDW Coefficient of Variation 12.6 11.5-14.5 % Immature Granulocyte % (Auto) 0.4 % Immature Granulocyte # (Auto) 0.02 0.00-0.02 K/uL Prothrombin Time 12.3 9.0-12.0 SECONDS Prothromb Time International Ratio 1.1 0.9-1.1 Activated Partial Thromboplast Time 28.6 21.0-31.0 SECONDS Partial Thromboplastin Ratio 1.1 Sodium Level 140 136-145 mmol/L Potassium Level 3.9 3.5-5.1 mmol/L Chloride Level 105 98-107 mmol/L Carbon Dioxide Level 26 21-32 mmol/L Anion Gap 9.0 3-11 mmol/L Blood Urea Nitrogen 10 7-18 mg/dl Creatinine 1.00 0.60-1.40 mg/dl Est Creatinine Clear Calc Drug Dose 132.0 ml/min Estimated GFR () 124.1 Estimated GFR (Non- 107.1 BUN/Creatinine Ratio 10.3 10-20 Random Glucose 151 70-99 mg/dl Calcium Level 8.7 8.5-10.1 mg/dl Magnesium Level 2.1 1.8-2.4 mg/dl Total Bilirubin 0.6 0.2-1 mg/dl Direct Bilirubin 0.2 0-0.2 mg/dl Aspartate Amino Transf (AST/SGOT) 12 15-37 U/L Alanine Aminotransferase (ALT/SGPT) 18 12-78 U/L Alkaline Phosphatase 40 45-117 U/L Total Protein 7.0 6.4-8.2 gm/dl Albumin 3.8 3.4-5.0 gm/dl Immunoglobulin G 927.0 700-1600 mg/dL Immunoglobulin A 161.0 70-400 mg/dL Immunoglobulin M 54.8 40-230 mg/dL Bedside Glucose 110 70-99 mg/dl Assessment and Plan 21 year old male with h/o Gilbert's syndrome, IBS, lactose intolerance, GERD, binge alcohol intake presents with acute anaphylaxis of unknown etiology. Influenza positive. s/p inappropriate treatment for strep throat with amoxicillin without rapid strep, per patient. Anaphylaxis Admitted to ICU and started on epinephrine infusion and admission to the intensive care unit--the patient be admitted to the ICU. Ig levels in normal range, likely not immune deficient. Comprehensive allergy tests pending. - Continue solu-medrol 60 mg IV every 6 hours, famotidine 20 mg IV twice a day , Benadryl 50 mg IV every 4 hours when necessary, - Follow up with RAST testing for zone 3 allergens, basic food profile, and amoxicillin. C1 esterase inhibitor levels, C3, C4 and CH 50 levels. - Consider prednisone tomorrow with taper at discharge Influenza Patient presented to PCP with flu symptoms 5 days prior to admission and was prescribed amoxicillin without rapid strep test confirmation, as per patient. Patient tested negative for mono but positive for influenza type A. Droplet precautions in place. Outside window of efficacy for Tamiflu, which was explained to patient. - Symptomatic treatment as needed Lifestyle - Advised for healthier choices, avoid/limited risky behaviour (alcohol consumption, marijuana usage), compliance with medications GERD - Continue famotidine Irritable bowel syndrome/lactose intolerance - Diet as tolerated - Symptom management if constipation or diarrhea ?Underlying immunodeficiency Testing done for IgA, IgA, IgM levels - results within normal limits. Code status Full code Continued [facility] stay due to: multiple IV medications needed Resident Involvement: Resident Care Provided Care Provided: Adult Hospital Medicine History Resident Physician Supervision Note: I was present with Dr. Fontenot during the history and exam. I discussed the case with the resident and agree with the findings and plan as documented in the note. Any exceptions or clarifications are listed here Pt seen and examined at bedside. No acute events overnight. Continued improvement of rash and swelling and fatigue even off epi drip. Reports no PHILLIPS, lightheadedness, CP/SOB, abd pain, nausea, paresthesias. General Appearance: no apparent distress Eye Exam: bilateral eye EOMI, bilateral eye PERRL Respiratory: chest non-tender, lungs clear, normal breath sounds, no respiratory distress Cardiovascular: normal peripheral pulses, regular rate, rhythm, no edema, no murmur Gastrointestinal: normal bowel sounds, non tender, soft, no organomegaly Assessment/Plan 21 y/o male h/o Lamont syndrome, binge alcohol use presents w/ anaphylaxis of unknown etiology Anaphylaxis - off IV epinephrine - continue benadryl, famotidine, promethazine, zofran, solu-medrol Influenza A - droplet precautions Binge alcohol use - would continue to encourage cessation and review risks Dispo: Monitoring for continued improvement, would probably be able to transition to PO tomorrow
[2016-04-23] MEDS ORDERED: NURSING DECISION MEDICATION ORDER SCH (16:45)
[2016-04-23] MEDS ORDERED: SODIUM CHLORIDE 0.65% NA SOLN 45 ML (OCEAN) PRN (17:00)
[2016-04-24] MEDS: METHYLPREDNISOLONE IV 60 MG in SYRINGE 0 ML IV SCH ×3 (00:16→11:30)
[2016-04-24 00:22] VITALS: BP 134/69; PULSE 76; TEMP 36.6; O2SAT 96
[2016-04-24] MEDS: FAMOTIDINE IV INJ 20 MG in DEXTROSE 5% 100ML 100 ML IV SCH ×2 (02:09→13:04)
--- NOTE | 2016-04-24 07:18 | Family Medicine Progress Note ---
Progress Note Date of Service Apr 24, 2016. Subjective Pt evaluation today including: conversation w/ patient, physical exam, chart review, lab review The patient was seen and examined at bedside. Pt reports new onset diarrhea that started over the weekend. Pt has a history of diarrhea with his IBS, states that his IBS diarrhea is actually more watery. Is having 3 BM per day over the weekend. Patient is resting comfortably in bed. Denies having any pain. Eating and urinating well. Denies SOB, chest pain, difficulty breathing or skin rashes. Pt is worried that he is missing a lot of school work. Roommates have not been by to see him. Plan of care was described to the patient and all questions were answered. Constitutional: No chills, No fever ENT: No hearing loss Respiratory: No cough, No sputum, No wheezing Cardiovascular: No chest pain Abdomen: No diarrhea, No nausea, No pain, No vomiting Objective Physical Exam General Appearance: WD/WN, no apparent distress Respiratory/Chest: chest non-tender, lungs clear, normal breath sounds, no respiratory distress, no accessory muscle use Cardiovascular: regular rate, rhythm, no edema, no gallop, no JVD, no murmur Abdomen: normal bowel sounds, non tender, soft Extremities: normal range of motion, non-tender, normal inspection, no pedal edema Neurologic/Psychiatric: no motor/sensory deficits, alert, normal mood/affect, oriented x 3 Assessment and Plan 21 year old male with h/o Gilbert's syndrome, IBS, lactose intolerance, GERD, binge alcohol intake presents with acute anaphylaxis with rash of unknown etiology. Patient was recently seen in the ED for similar symptoms. He cannot identify a trigger. Was on Day #5 of Amoxicillin when rash started. Has taken Amoxicillin in the past without reaction. Eats bland diet due to IBS. Patient is improving clinically. Hospital Day #2. Anaphylaxis of unknown origin. - Discharged from ICU, doing well clinically. S/p multiple epi pens and Solu- Medrol IV, dc to med surg floor. - Comprehensive allergy tests pending. - Continue solu-medrol 60 mg IV every 6 hours, famotidine 20 mg IV twice a day , Benadryl 50 mg IV every 4 hours when necessary, - Follow up with [facility] testing for zone 3 allergens, basic food profile, and amoxicillin. C1 esterase inhibitor levels, C3, C4 and CH 50 levels. - Prednisone PO taper at discharge with allergy follow up. Influenza - Droplet precautions in place. Outside window of efficacy for Tamiflu. - Symptomatic treatment as needed Alcohol and Marijuana Consumption - Pt advised to limit alcohol intake and avoid marijuana usage. GERD - C/w famotidine Irritable bowel syndrome/lactose intolerance - Diet as tolerated - Symptom management if constipation or diarrhea. - Consider C. Diff testing if diarrhea doesn't resolve. 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 Raman Arreola, [address] [place] [address], [address] [place] [address] Resident Involvement: Resident Care Provided Care Provided: Adult Hospital Medicine
[2016-04-24 07:22] VITALS: BP 126/68; PULSE 73; TEMP 36.6; O2SAT 99
[2016-04-24 08:20] LABS: BASO % 0.1 %; BASO ABS # 0.01 K/uL (0-0.2); COMPLETE YES; HEMATOCRIT 45.8 % (42-52); IG% 0.4 %; LYMPH % 9.8 %; LYMPH ABS # 1.12 K/uL (1.2-3.4); MEAN CELL VOLUME 89.1 fL (80-100); MEAN CORPUSCULAR HEMOGLOBIN 31.1 pg (25-34); MEAN CORPUSCULAR HGB CONC 34.9 g/dl (32-36); MEAN PLATELET VOLUME 10.1 fL (7.4-10.4); MONO % 4.6 %; NEUT % 85.1 %; PLATELET COUNT 267 K/uL (130-400); RED BLOOD COUNT 5.14 M/uL (4.7-6.1); WHITE BLOOD COUNT 11.39 K/uL (4.8-10.8)
[2016-04-24 08:35] LABS: INR 1.1 (0.9-1.1); PROTHROMBIN TIME (PATIENT) 12.1 SECONDS (9.0-12.0)
[2016-04-24 08:52] LABS: BUN/CREATININE RATIO 16.5 (10-20); CALCIUM 9.2 mg/dl (8.5-10.1); CREATININE 1.1 mg/dl (0.60-1.40); MAGNESIUM 2.4 mg/dl (1.8-2.4); POTASSIUM 3.9 mmol/L (3.5-5.1)
[2016-04-24] MEDS ORDERED: LACTOBACILLUS ACIDOPHILUS (FLORANEX) TAB PO ONE (12:23)
[2016-04-24] MEDS ORDERED: EPP3/2 IM ×2 (13:38→14:35)
[2016-04-24] MEDS ORDERED: PRED20TA2 PO (13:38)
--- NOTE | 2016-04-24 13:49 | Discharge Instructions ---
Discharge Instructions Admission Reason for Admission: Anaphylaxis Discharge Discharge Diagnosis / Problem: Anaphylaxis Discharge Goals Goal(s): Decrease discomfort, Improve function, Increase independence, Diagnostic testing Activity Recommendations Activity Limitations: resume your previous activity Lifting Limitations: none . Instructions / Follow-Up Instructions / Follow-Up We are arranging an appointment with an cosmetic sales consultant. Someone from the Neurourologist' s office will call you with an appointment. It is very important you attend your Allergists appointment. We believe you had a severe allergic reaction called Anaphylaxis. Anaphylaxis is a life threatening condition. It is unknown what caused this reaction. It is important to understand the warning signs for a severe allergic reaction and react appropriately. The warnings signs of anaphylaxis include throat tightness , intractable coughing, difficulty to breath or a severe skin rash. You may also experience warmth and sweating. You have been given a prescription for two Epi Pens. A self injection with an Epi Pen is a treatment you can do at home if you are having signs of Anaphylaxis. It is important to carry your Epi Pen with you wherever you go. Should you experience the warning signs of Anaphylaxis, administer the Epi Pen and come to the ER immediately. You have also been prescribed a 5 day course of Prednisone. The Prednisone is to help calm your immune system. You are to take 3 pills of Prednisone on Sunday, 2 pills on Sunday, 2 pills of Prednisone on , 1 pill on Sunday and 1 pill on Sunday. Neurourologist appointment: Dr. Pennington SunApr 26 at 11am [address] [place] [address] Current Hospital Diet Patient's current hospital diet: Regular Diet Discharge Diet Recommended Diet: Regular Diet Pending Studies Studies pending at discharge: yes List of pending studies: Antibody Panel C. Diff Test. Medical Emergencies . Who to Call and When: Medical Emergencies: If at any time you feel your situation is an emergency, please call 911 immediately. . Non-Emergent Contact Non-Emergency issues call your: Primary Care Provider, Specialist (Neurourologist) . . "Provider Documentation" section prepared by Saman Avendano. VTE Core Measure Inpt VTE Proph given/why not?: SCD's Resident Involvement: Resident Care Provided Care Provided: Adult Hospital Medicine
--- NOTE | 2016-04-24 14:04 | Discharge Summary ---
Discharge Summary Admission Date: Apr 22, 2016 at 15:07 Discharge Date: Apr 24, 2016 Discharge Disposition: Home Principal Diagnosis: Anaphylaxis (Saman Avendano M.D.) Medication Reconciliation New Medications: Epinephrine (Epipen 2-Dorian) 0.3 Mg Inj 1 UNITS IM DIRECTED for 2 Days, #2 SYR Prednisone (Prednisone Tab) 20 Mg Tab 20 MG PO DAILY, #9 TAB 3 Pills on Sunday 7 2 Pills on SunApr 26 2 Pills on Apr 27 1 Pill on SundayApr 28 1 Pill on SunApr 29 Continued Medications: Clotrimazole (Mycelex) 10 Mg Tro 10 MG MT, JIMENEZ Ibuprofen Tab (Advil) 200 Mg Tab 400-600 MG PO Q6H, TAB Probiotic Product (Probiotic) 1 Cap Cap 1 CAP PO DAILY Discontinued Medications: Amoxicillin (Amoxil) 250 Mg Cap 1 CAP PO BID for 7 Days, #14 CAP Nystatin (Nystatin Suspension) 1 Ml Susp 1 DOSE PO BID Discharge Exam The patient was seen and examined at bedside. Pt reports new onset diarrhea that started over the weekend. Pt has a history of diarrhea with his IBS, states that his IBS diarrhea is actually more watery. Is having 3 BM per day over the weekend. Patient is resting comfortably in bed. Denies having any pain. Eating and urinating well. Denies SOB, chest pain, difficulty breathing or skin rashes. Pt is worried that he is missing a lot of school work. Roommates have not been by to see him. Plan of care was described to the patient and all questions were answered. Review of Systems Constitutional: No chills, No fever ENT: No hearing loss Respiratory: No cough, No sputum, No wheezing Cardiovascular: No chest pain Abdomen: No diarrhea, No nausea, No pain, No vomiting Physical Exam General Appearance: WD/WN, no apparent distress Respiratory/Chest: chest non-tender, lungs clear, normal breath sounds, no respiratory distress, no accessory muscle use Cardiovascular: regular rate, rhythm, no edema, no gallop, no JVD, no murmur Abdomen: normal bowel sounds, non tender, soft Extremities: normal range of motion, non-tender, normal inspection, no pedal edema Neurologic/Psychiatric: no motor/sensory deficits, alert, normal mood/affect, oriented x 3 (Saman Avendano M.D.) Review of Systems: Constitutional: No fever ENT: + sore throat (throat feels much better though) Respiratory: No shortness of breath Cardiovascular: No chest pain Abdomen: + diarrhea Physical Exam: General Appearance: no apparent distress Respiratory/Chest: lungs clear, no respiratory distress Cardiovascular: regular rate, rhythm Abdomen / GI: normal bowel sounds, non tender, soft Neurologic/Psychiatric: alert, oriented x 3 Skin: warm/dry (Nisa Goodwin M.D.) Hospital Course 21 year old male with h/o Gilbert's syndrome, IBS, lactose intolerance, GERD, binge alcohol intake presents with acute anaphylaxis with rash of unknown etiology. Patient was recently seen in the ED for similar symptoms. He cannot identify a trigger. Was on Day #5 of Amoxicillin when rash started. Has taken Amoxicillin in the past without reaction. Eats bland diet due to IBS. Patient is improving clinically after receiving an Epi Pen and Solu Medrol IV. He will be discharged on a Prednisone Taper and given a prescription for two epi pens. Hospital course was significant for diarrhea. He will be tested for C. Diff while prior to discharge although the diarrhea may be related to the patients history of IBS. An allergy panel was done and pending prior to discharge. Follow up with an Optimization Analyst will be arranged. Total Time Spent: Greater than 30 minutes This includes examination of the patient, discharge planning, medication reconciliation, and communication with other providers. (Saman Avendano M.D.) I have reviewed the medical record and performed a history and physical examination of this patient today. I have discussed the case with Dr. Avendano . The above note reflects my findings, conclusions, and recommendations. Total Time Spent: Greater than 30 minutes (35) (Nisa Goodwin M.D.) Discharge Instructions Please refer to the electronic Patient Visit Report (Discharge Instructions) for additional information. (Saman Avendano M.D.) Follow-Up Optimization Analyst appointment: Dr. Pennington SunApr 26 at 11am [address], [place] [address] (Saman Avendano M.D.) Additional Copies To Saman Avendano M.D.; Henry Pennington M.D.; [facility] Resident Involvement: Resident Care Provided Care Provided: [facility] (Saman Avendano M.D.)
[2016-04-24] MEDS ORDERED: PRED20TA PO (14:34)
[2016-04-24 15:11] VITALS: BP 126/68; PULSE 73; TEMP 36.6; O2SAT 99
[2016-04-24 15:19] VITALS: BP 149/70; PULSE 57; TEMP 36.7; O2SAT 98
[2016-04-24 16:00] VITALS: O2SAT 96
[2016-04-24] MEDS ORDERED: LACTOBACILLUS ACIDOPHILUS (FLORANEX) TAB PO SCH (17:00)
[2016-04-28 18:20] LABS: ALTERNARIA CLASS 0; ALTERNARIA IGE <0.10 KU/L; AMOXICILLIN CLASS 0; AMOXICILLIN IGE <0.10 kU/L; ASPERG FUMIG CLASS 0; ASPERG FUMIG IGE <0.10 KU/L; BAHIA GRASS ASM CLASS 2; BAHIA GRASS IGE 0.97 KU/L; BERMUDA GRASS CLASS 2; BERMUDA GRASS IGE 0.88 KU/L; BIRCH CLASS 2; BLACK LOCUST CLASS 2; C1 ESTERASE INHIB TC298 31 mg/dL (21-39); CASHEW CLASS 0/1; CASHEW IGE 0.27 KU/L; CAT DANDER CLASS 0; CLADOSPORIUM HER CLASS 0; CLADOSPORIUM HER IGE <0.10 KU/L; COCKROACH CLASS 0/1; CODFISH CLASS 0; D. FARINAE CLASS 0/1; D. FARINAE IGE 0.24 KU/L; D. PTERONYSSINUS CLASS 0/1; D. PTERONYSSINUS IGE 0.26 KU/L; DOG DANDER CLASS 0; EGG WHITE CLASS 0; EGG WHITE IGE <0.10 KU/L; ELM CLASS 3; ENGLISH PLAN CLASS 1; ENGLISH PLAN IGE 0.57 KU/L; HAZELNUT CLASS 4; JOHNSON CLASS 2; JOHNSON IGE 0.97 KU/L; JUNE (KENTUCKY BLUE) CLASS 2; JUNE IGE 0.91 KU/L; MAPLE (BOX ELDER) IGE 1.39 KU/L; MAPLE CLASS 2; MOUNTAIN CEDAR ASM CLASS 1; MOUNTAIN CEDAR IGE 0.41 KU/L; MUCOR CLASS 0; MUCOR IGE <0.10 KU/L; NETTLE CLASS 2; PEANUT IGE 4.25 KU/L; PENIC NOTATUM CLASS 0; PENIC NOTATUM IGE <0.10 KU/L; RAST ALMOND CLASS 3; RAST ALMOND IGE 4.23 KU/L; ROUGH PIGWEED CLASS 2; ROUGH PIGWEED IGE 0.82 KU/L; SALMON CLASS 0; SALMON IGE <0.10 KU/L; SCALLOP CLASS 0/1; SCALLOP IGE 0.16 KU/L; SESAME CLASS 2; SHORT RAGWEED CLASS 2; SHORT RAGWEED IGE 1.78 KU/L; SHRIMP CLASS 0/1; SOY CLASS 1; SOY IGE 0.59 KU/L; STEMPHY BOTRY CLASS 0; STEMPHY BOTRY IGE <0.10 KU/L; TUNA CLASS 0; TUNA IGE <0.10 KU/L; WALNUT CLASS 3; WHEAT CLASS 1; WHEAT IGE 0.56 KU/L; WHITE HICKORY ASM CLASS 1; WHITE HICKORY IGE 0.61 kU/L (<0.35); WHITE MULBERRY CLASS 2; WHITE MULBERRY IGE 1.87 KU/L
== END 2016-04-24 15:59 | disposition home or self-care (01) | DRG 916 ==
LOC: ENRESERVDT → ENRESERVTM → EDBD 12:58 → C.EDC 12:59 → C.MSICU 15:07 → UNDOADMIN 15:07 → C.MS2W 04-23 12:21
PROVIDERS: ADMIT Hospitalist; ATTEND Family Medicine
PROC: 05HM33Z Insertion of Infusion Device into Right Internal Jugular Vein, Percutaneous Approach (ICD-10-PCS; principal; 2016-04-22)
DX: T88.6XXA Anaphylactic reaction due to adverse effect of correct drug or medicament properly administered, initial encounter (principal); T36.0X5A Adverse effect of penicillins, initial encounter; J10.1 Influenza due to other identified influenza virus with other respiratory manifestations; L27.0 Generalized skin eruption due to drugs and medicaments taken internally; K13.0 Diseases of lips; K58.0 Irritable bowel syndrome with diarrhea; E80.4 Gilbert syndrome; E73.9 Lactose intolerance, unspecified; K21.9 Gastro-esophageal reflux disease without esophagitis; Z79.899 Other long term (current) drug therapy; Z72.89 Other problems related to lifestyle

== ENCOUNTER → 2016-05-17 | Outpatient (CLI) | payer OTHER ==
[~2016-05-17] MED LIST changes: +CLOT10TR2 MT; +EPP3/2 IM; -HYOS0.1255 PO; +IBUP-103 PO; +MISCCAP80 PO
[2016-05-20 14:19] LABS: AMOXICILLIN CLASS 0/1; AMOXICILLIN IGE 0.15 kU/L
== END | disposition home or self-care (01) ==
LOC: C.LAB1850 10:06
PROVIDERS: ATTEND Internal Medicine Pulmonary Disease
DX: T78.2XXA Anaphylactic shock, unspecified, initial encounter (principal); X58.XXXA Exposure to other specified factors, initial encounter